=== PATIENT | female | born 2000 | race Caucasian/White ===

== ENCOUNTER 2023-07-14 16:22 | Emergency (ER) | payer OTHER, SELFPAY ==
[2023-07-14 16:27] VITALS: BP 141/94; PULSE 82; RESP 20; O2SAT 99; BMI 19.1
[2023-07-14 17:34] LABS: Bilirubin Urine NEGATIVE (NEGATIVE); Blood Urine TRACE-I (NEGATIVE); Clarity Urine CLEAR (CLEAR); Color Urine YELLOW (YELLOW); Glucose Urine UA NEGATIVE (NEGATIVE); Ketones Urine TRACE mg/dL (NEGATIVE); Leukocyte Esterase Urine NEGATIVE (NEGATIVE); Nitrite Urine POSITIVE (NEGATIVE); Protein Urine TRACE mg/dL (NEG/TRACE); Specific Gravity Urine >=1.030 (1.005-1.025); Urobilinogen Urine 0.2 EU/dL (0.2-1.0)
[2023-07-14 17:35] LABS: Basophils Absolute Auto 0.1 10^3/uL (0.0-0.1); Basophils Percent Auto 0.8 % (0.2-2.0); Eosinophils Absolute Auto 0.1 10^3/uL (0.0-0.7); Hematocrit 38.9 % (36.0-48.0); Hemoglobin 12.2 g/dL (12.0-16.0); Immature Granulocytes Abs Auto 0.04 10^3/uL (0.00-0.03); Immature Granulocytes Pct Auto 0.3 % (0.0-0.5); Lymphocytes Absolute Auto 3.1 10^3/uL (1.2-3.8); Lymphocytes Percent Auto 26.7 % (20.5-60.0); Mean Corpuscular HGB Conc 31.4 g/dL (29.9-35.2); Mean Corpuscular Hemoglobin 23.8 pg (26.7-34.0); Mean Platelet Volume 9.6 fL (9.5-13.5); Monocytes Absolute Auto 0.7 10^3/uL (0.3-0.8); Monocytes Percent Auto 5.8 % (1.7-12.0); Neutrophils Absolute Auto 7.6 10^3/uL (1.4-6.5); Neutrophils Percent Auto 65.4 % (43.0-75.0); Platelet Count 443 10^3/uL (150-450); Red Blood Count 5.12 10^6/uL (4.20-5.40); Red Cell Distribution Width 18.6 % (11.0-15.0); White Blood Count 11.6 10^3/uL (4.0-11.0)
[2023-07-14 17:43] LABS: Bacteria Urine MODERATE #/HPF (NONE SEEN); Calcium Oxalate Crystals Urine RARE; Cast Seen? NONE SEEN #/LPF (NONE SEEN); Crystals Seen? Seen #/HPF (None Seen); Mucus Urine NONE SEEN (NONE SEEN); RBC Urine 0-2 #/HPF (0-2); Squamous Epithelial Cell Urine FEW #/LPF (NONE/RARE); Urine Culture Indicated YES
[2023-07-14] MEDS: KETOROLAC TROMETHAMINE 30 MG/ML VIAL 15 MG IVP (17:50)
--- NOTE | 2023-07-14 17:50 | XR_ITS ---
The [address] [address] Patient Name: CRISTINA LANDAVERDE MRN: [id number] date: 2000 Sex: F Assigned Patient Location: ER Current Patient Location: ED.MAIN Accession/Order Number: [id number] Exam Date: 07/14/2023 17:38 Report Date: 07/14/2023 18:45 At the request of: LASHON WISE Procedure: XR acute abdomen series EXAM TYPE: XR acute abdomen series EXAM DATE AND TIME: 07/14/2023 2:38 PM PDT INDICATION: 23 years old Female with COMPARISON: None. TECHNIQUE: Frontal view of the chest. Supine and upright views of the abdomen. FINDINGS: No pneumothorax, pleural effusion or focal consolidation. Heart size is within normal limits. Normal nonobstructive bowel gas pattern. No subdiaphragmatic free intraperitoneal air. No pathologic calcifications. Visualized osseous structures appear unremarkable. Pelvic surgical clips are noted. XR/XR acute abdomen series IMPRESSION: Nonspecific abdomen. Electronically authenticated by: Ashwin LEAL Date: 07/14/2023 18:45
[2023-07-14] MEDS: ONDANSETRON PF 4 MG/2 ML VIAL IV (17:51)
[2023-07-14] MEDS: 0.9 % SODIUM CHLORIDE 1,000 ML 999 ML IV (17:51)
[2023-07-14] MEDS: DICYCLOMINE HCL 20 MG/2 ML VIAL IM (17:51)
--- NOTE | 2023-07-14 18:01 | ED.GENADUL1 ---
HPI - General Adult General Chief complaint: Abdominal Pain Stated complaint: FLANK PAIN Time Seen by Provider: 07/14/23 16:27 Mode of arrival: walk-in History of Present Illness HPI narrative: Patient is a 23-year-old female who is presenting to the Emergency Room with multiple complaints and concerns. Patient states that she was raised in the [place] area, but currently lives in [place]. Patient has no PCP. Patient states that last week she was at [facility]. It is unclear exactly what happened in the emergency room, patient said she was there because she had multiple symptoms at that time as well, television, dizziness, belly pain, nausea or vomiting. Patient is uncertain what happened because she states that she was being held against her wishes even know she is not suicidal. Patient then states that she had a EEG as an inpatient. Patient initially told the nurses at triage that she had brain surgery but it sounds like patient had a EEG for unknown reason. Patient also has a small area of bruising to her left lower quadrant, patient does not know where that occurred while she was admitted at [facility]. Patient states that she has clamps on her bilateral fallopian tubes, and she is concerned that since she was at a [facility] hospital at [facility], she does not know where the bruise came from, but was wondering if [facility] messed with my clamps and is there a way to verify they are okay. Patient statesFor the past 1.5 weeks, she's had nausea, vomiting, has not been eating or drinking much. Patient says that she does use marijuana, she gets it from dispensary's. Patient has history of cyclic nausea and vomiting. Patient denies any illicit drug use, denies any withdrawal from benzos or opiates, states she does no other illicit drugs. Patient says she does not drink alcohol, she does smoke pack cigarettes a day. Patient takes no other medications, no control. Patient has urinary frequency and some dysuria, no urgency. Patient's been having left flank pain. Patient does have a history kidney stones, patient states that she's had lithotripsy 2 or 3 times in the past with urologist in the [facility]. She currently does not have a urologist in [place]. She has no vaginal bleeding, discharge or orders, she is not worried about an STD. Patient says she will have intermittent chest tightness across her left chest, not currently there. No headache, no neck pain. Patient says that she does not feel right, feels like something's wrong with her. Patient did show me abnormal labs that were recorded at [facility], she wrote the abnormal labs on a piece of no blood paper and asked me to explain to her all the abnormal labs and findings. Patient had a low MCV, free T4 was elevated, her EKG showed early repolarization. Patient had signs of dehydration, metabolic acidosis with a low CO2 level. Patient had some of the results from the EKG that she had done. I went over patient's abnormal lab results, urine results, EKG, EEG results with her. I explained to her there is no indication to perform any imaging, CAT scan to verify that her fallopian tube clamps are intact at this time, I did explain to her that the bruising to her left lower abdomen was most likely from a Lovenox shot since she was admitted to the hospital, or possibly insulin shot if that was given for any reason. We are attempting to get records from [facility]. Patient does not recall getting a shot in her abdomen. Patient says that she was out of it for 24 hours, does not recall having the EEG, states that she woke up during some type of brain procedure and then they put her back to sleep again. Patient's recollection of her admission as [facility] is very scattered and unclear as presented to the nursing staff and myself, Andressa Fong RN and Karen Hatfield RN . All systems are negative except as noted/marked. All systems reviewed and otherwise negative. . Nurses note and vital signs reviewed and patient is not hypoxic. General: The patient appears well and in no apparent distress. Patient is resting comfortably on cart. Patient is not toxic, lethargic, or listless Skin: Warm, dry, no pallor noted. There is no rash noted. No petechiae, purpura. Patient has approximately a quarter size ecchymotic area to left lower quadrant. Patient has no palpable hematoma, no pain to the area. Head: Normocephalic, atraumatic Eye: Normal conjunctiva, no drainage, EOMI. PERRL Ears, Nose, Mouth, and Throat: oral mucosa is moist. Nares patent. Mouth without vesicles. Cardiovascular: Regular Rate and Rhythm, no murmur, gallop, rub Respiratory: Patient is in no distress, no accessory muscle use, lungs are clear to auscultation, no wheezing, rales or rhonchi Back: non-tender, no CVA tenderness bilaterally to percussion. No CT LS midline pain GI: soft, no tenderness to palpation, no masses appreciated. No rebound, guarding, or rigidity noted. No flank pain bilateral, No distention. Patient stated she had surgery through her umbilicus previously, her umbilicus is within normal limits, no tenderness to palpation, no signs of abscess, drainage, or any other acute abnormality. Musculoskeletal: Patient has full range of motion of all of the extremities, no motor, sensory, or focal neurological deficits Neurological: A&O x3, normal speech Psychiatric: Cooperative, Patient is alert and oriented ?3, GCS of 15. Patient is not hallucinating, not psychotic, not suicidal, not homicidal, patient is able to provide clear history and answer questions appropriately to the best of her recollection for myself. This was not evident during initial triage, and patient was not as clear with her thoughts and presentation for Andressa Fong and Jabari Hatfield RN. However, patient has never been suicidal, homicidal, paranoid, psychotic, hallucinating, or any other symptoms or require more testing. Entire history and physical exam, along with history of present illness was done with Andressa Alonso RN at bedside as a witness in the room. Related Data Previous Rx's Medication Instructions Recorded cephalexin 500 mg capsule 500 mg PO Q12H 7 days #14 caps 07/14/23 ondansetron 4 mg disintegrating 4 mg PO Q4H PRN nausea and 07/14/23 tablet vomiting 3 days #6 tabs promethazine 25 mg rectal 25 mg ND Q6H PRN nausea and 07/14/23 suppository vomiting #6 ea Allergies Allergy/AdvReac Type Severity Reaction Status Date / Time pcn AdvReac Intermediate Uncoded 07/14/23 17:55 shellfish AdvReac Intermediate Uncoded 07/14/23 17:55 Exam Constitutional Vital Signs, click to edit/add: Last Vital Signs Pulse 82 07/14/23 16:27 Resp 20 07/14/23 16:27 BP 141/94 H 07/14/23 16:27 Pulse Ox 99 07/14/23 16:27 O2 Del Method Room Air 07/14/23 16:27 Course Vital Signs Vital signs: Vital Signs Pulse Rate 82 07/14/23 16:27 Respiratory Rate 20 07/14/23 16:27 Blood Pressure 141/94 H 07/14/23 16:27 Pulse Oximetry 99 07/14/23 16:27 Oxygen Delivery Method Room Air 07/14/23 16:27 Pulse Rate 82 07/14/23 16:27 Respiratory Rate 20 07/14/23 16:27 Blood Pressure 141/94 H 07/14/23 16:27 Pulse Oximetry 99 07/14/23 16:27 Oxygen Delivery Method Room Air 07/14/23 16:27 Medical Decision Making MDM Narrative Medical decision making narrative: Patient labwork shows no significant findings. Patient's urine shows evidence of urinary tract infection, patient was given 1 g Rocephin. Patient was sent home with 7 days of Keflex. Patient was sent home with Zofran and Phenergan suppositories. Patient was given a PCP list of PCP in the area of [place] as requested. Patient was in [place], she was also recommended to obtain PCP in her hometown of [place] as well. Patient feels better after IV fluids. We did not obtain patient's paperwork or information from [facility] until patient was discharged. This was reviewed after patient was discharged after my Emergency Room shift working, doing charts dictating after my shift. Patient was admitted to the neurology department, the admission diagnosis was initially suicidal ideation, and seizure. The discharge diagnosis was seizure, suicidal ideation, depressive disorder. I did asked patient if she has a history of seizures and she told me no. Patient had presented to [facility] with seizure-like activity, tonic-clonic activity lasting for more than 5 minutes. Patient was admitted for a seizure workup. Patient told physicians that she did have a previous seizure-like episode that lasted for 2 minutes years before this event last week but never sought medical treatment. MRI of the brain was negative. Patient was loaded with Keppra in the Emergency Room. Patient was switched to Vimpat. She is also given a migraine cocktail for headache. Patient initially expressed suicidal ideation that she later denied. Psychiatry was counseled today and evaluated, as recommended by psychiatry that she could be discharged with outpatient follow-up. Patient declined antidepressants when she left. Patient was started on amitriptyline nightly for migraines, also given a prescription for Fioricet to help with migraines. Patient was advised to be compliant with taking Vimpat twice a day. Patient did have an EEG. Patient does not recall any of this, patient told me that she takes no daily medications. Patient told me nothing about history of headaches or migraines. Patient is extremely poor historian. However, patient did have the functional decision-making capacity to be discharged from the Emergency Room today. Patient felt better at discharge. Patient was tolerating a Gatorade but no nausea or vomiting in the Emergency Room. No questions at discharge. See paperwork from [facility] scanned into the chart. Lab Data Lab results reviewed: Yes I reviewed the patient's lab results Labs: Lab Results 07/14/23 07/14/23 07/14/23 Range/Units 16:51 17:20 18:49 WBC 11.6 H (4.0-11.0) 10^3/uL RBC 5.12 (4.20-5.40) 10^6/uL Hgb 12.2 (12.0-16.0) g/dL Hct 38.9 (36.0-48.0) % MCV 76.0 L (81.0-99.0) fL MCH 23.8 L (26.7-34.0) pg MCHC 31.4 (29.9-35.2) g/dL RDW 18.6 H (11.0-15.0) % Plt Count 443 (150-450) 10^3/uL MPV 9.6 (9.5-13.5) fL Neut % (Auto) 65.4 (43.0-75.0) % Lymph % (Auto) 26.7 (20.5-60.0) % [place] % (Auto) 5.8 (1.7-12.0) % Eos % (Auto) 1.0 (0.9-7.0) % Baso % (Auto) 0.8 (0.2-2.0) % Neut # (Auto) 7.6 H (1.4-6.5) 10^3/uL Lymph # (Auto) 3.1 (1.2-3.8) 10^3/uL [place] # (Auto) 0.7 (0.3-0.8) 10^3/uL Eos # (Auto) 0.1 (0.0-0.7) 10^3/uL Baso # (Auto) 0.1 (0.0-0.1) 10^3/uL Abs Immat Gran (auto) 0.04 H (0.00-0.03) 10^3/uL Imm/Tot Granulo (auto) 0.3 (0.0-0.5) % Sodium 141 (136-145) mmol/L Potassium 3.8 (3.5-5.1) mmol/L Chloride 105 (98-107) mmol/L Carbon Dioxide 25.4 (21.0-32.0) mmol/L Anion Gap 14.4 BUN 8.0 (7.0-18.0) mg/dL Creatinine 0.78 (0.55-1.02) mg/dL Est GFR ( Amer) >60 (>=60) Est GFR (Non-Af Amer) >60 (>=60) BUN/Creatinine Ratio 10.3 Glucose 99 (74-106) mg/dL Calcium 9.4 (8.5-10.1) mg/dL Total Bilirubin 0.5 (0.2-1.0) mg/dL AST 11 L (15-37) U/L ALT 19 (14-59) U/L Alkaline Phosphatase 56 (46-116) U/L Troponin I High Sens <4.0 L (4.0-51.3) pg/mL Total Protein 7.6 (6.4-8.2) g/dL Albumin 4.3 (3.4-5.0) g/dL Globulin 3.3 g/dL Albumin/Globulin Ratio 1.3 Lipase 46.0 L (73.0-393.0) U/L Urine Color Yellow (YELLOW) Urine Clarity Clear (CLEAR) Urine pH 6.0 (5.0-9.0) Ur Specific [place] >=1.030 A (1.005-1.025) Urine Protein Trace (NEG/TRACE) mg/dL Urine Glucose (UA) Negative (NEGATIVE) mg/dL Urine Ketones Trace A (NEGATIVE) mg/dL Urine Occult Blood Trace-i (NEGATIVE) Urine Nitrite Positive A (NEGATIVE) Urine Bilirubin Negative (NEGATIVE) Urine Urobilinogen 0.2 (0.2-1.0) EU/dL Ur Leukocyte Esterase Negative (NEGATIVE) Urine RBC 0-2 (0-2) #/HPF Urine WBC 5-10 A (NONE SEEN) #/HPF Ur Squamous Epith Cells Few A (NONE/RARE) #/LPF Urine Crystals Seen A (None Seen) #/HPF Calcium Oxalate Crystal Rare Urine Bacteria Moderate A (NONE SEEN) #/HPF Urine Casts None seen (NONE SEEN) #/LPF Urine Mucus None seen (NONE SEEN) Ur Culture Indicated? Yes Urine HCG, Qual Negative (NEGATIVE) Discharge Plan Discharge Chief Complaint: Abdominal Pain Clinical Impression: UTI (urinary tract infection), Lightheadedness, Marijuana use, Nausea & vomiting Patient Disposition: Home, Self-Care Condition: Good Prescriptions / Home Meds: New promethazine 25 mg suppository 25 mg ND Q6H PRN (Reason: nausea and vomiting) Qty: 6 0RF cephalexin 500 mg capsule 500 mg PO Q12H 7 Days Qty: 14 0RF ondansetron 4 mg tablet,disintegrating 4 mg PO Q4H PRN (Reason: nausea and vomiting) 3 Days Qty: 6 0RF Instructions: Urinary Tract Infection in Women (ED), Acute Nausea and Vomiting (DC), Cannabis Use Disorder (ED), Lightheadedness (ED) Additional Instructions: Take your next dose of antibiotic tomorroww, Friday, July 15. Use oral Zofran or Phenergan suppositories as needed for nausea and vomiting. Education on cyclic nausea and vomiting from marijuana use has been given 2 for educational purposes only, I am not diagnosing new with this today from the Emergency Room. Increase fluids with Gatorade or Powerade or cranberry juice in the next 2-3 days. Progress to soft diet as tolerated. PCP list has been given to, You need to set up primary care physician. Stand Alone Forms: Portal Instructions Referrals: Physician,Non-Staff, MD [Primary Care Provider] - 1 week Discharge Date/Time: 07/14/23 20:27
[2023-07-14] MEDS: CEFTRIAXONE 1,000 MG in 0.9 % SODIUM CHLORIDE 50 ML 100 MG IV (18:18)
[2023-07-14 18:20] LABS: Alanine Aminotransferase 19 U/L (14-59); Albumin Globulin Ratio 1.3; Albumin Level 4.3 g/dL (3.4-5.0); Alkaline Phosphatase 56 U/L (46-116); Anion Gap 14.4; Aspartate Amino Transferase 11 U/L (15-37); BUN Creatinine Ratio 10.3; Bilirubin Total 0.5 mg/dL (0.2-1.0); Calcium 9.4 mg/dL (8.5-10.1); Carbon Dioxide 25.4 mmol/L (21.0-32.0); Chloride 105 mmol/L (98-107); Estimated GFR (African America >60 (>=60); Estimated GFR (Non-African Ame >60 (>=60); Globulin 3.3 g/dL; Glucose 99 mg/dL (74-106); Potassium 3.8 mmol/L (3.5-5.1); Sodium 141 mmol/L (136-145); Total Protein 7.6 g/dL (6.4-8.2); Troponin I High Sensitivity <4.0 pg/mL (4.0-51.3)
[2023-07-14 18:52] LABS: HCG Qualitative Urine* NEGATIVE (NEGATIVE)
[2023-07-14] MEDS: METOCLOPRAMIDE HCL 10 MG/2 ML VIAL IVP (19:09)
== END 2023-07-14 20:27 | disposition home or self-care (01) ==
PROVIDERS: Emergency Provider Emergency Medicine
DX: N39.0 Urinary tract infection, site not specified (principal); R42 Dizziness and giddiness; R11.2 Nausea with vomiting, unspecified; F12.90 Cannabis use, unspecified, uncomplicated; F17.210 Nicotine dependence, cigarettes, uncomplicated; Z87.442 Personal history of urinary calculi
CPT/HCPCS: 36415; 74022; 80053; 81001; 83690; 84484; 84703; 85025; 87086; 87150; 87186; 96372; 96374; 96375; 99284; J0500

== ENCOUNTER 2024-06-29 20:44 | Emergency (ER) | payer SELFPAY ==
[2024-06-29 21:01] VITALS: BP 126/74; PULSE 67; TEMP 36.7; O2SAT 99
--- NOTE | 2024-06-29 21:38 | ED.FEMALEGU1 ---
HPI - Female Genitourinary General Chief complaint: Vaginal Bleeding Stated complaint: Vaginal Bleeding Time Seen by Provider: 06/29/24 21:28 Source: patient Mode of arrival: walk-in History of Present Illness HPI Narrative: presents complaining of vaginal bleeding after intercourse last PM and again today. mild bleeding last PM. Increased bleeding today . No urinary symptoms. States she should not be on her menses and came in to get checked. No light headiness. Admits to some bleeding also about 2 weeks ago Related Data Previous Rx's ?Medication ?Instructions ?Recorded cephalexin 500 mg capsule 500 mg PO Q12H 7 days #14 caps 07/14/23 ondansetron 4 mg disintegrating 4 mg PO Q4H PRN nausea and 07/14/23 tablet vomiting 3 days #6 tabs promethazine 25 mg rectal 25 mg [place] Q6H PRN nausea and 07/14/23 suppository vomiting #6 ea Allergies Allergy/AdvReac Type Severity Reaction Status Date / Time pcn AdvReac Intermediate Hives Uncoded 06/29/24 21:00 shellfish AdvReac Intermediate Hives Uncoded 06/29/24 21:00 Review of Systems ROS Status of ROS 10 or more systems reviewed and unremarkable except as noted in history and below PFSH PFSH Social History Little interest or pleasure in doing things: not at all Feeling down, depressed, or hopeless: not at all Exam Constitutional Vital Signs, click to edit/add: Last Vital Signs Temp 98.0 F 06/29/24 21:01 Pulse 64 06/30/24 00:42 Resp 16 06/30/24 00:42 BP 126/74 06/29/24 21:01 Pulse Ox 100 06/30/24 00:42 O2 Del Method Room Air 06/30/24 00:42 Common normals: no apparent distress, average body habitus, oriented x3, no limitations, healthy appearing, alert and well nourished [facility] Common normals: normocephalic and head/scalp atraumatic Eye Common normals: EOMs intact bilaterally and conjunctivae normal Respiratory Common normals: normal respiratory effort, no retractions, no use of accessory muscles and clear to auscultation bilaterally Cardio Common normals: regular rate, regular rhythm, S1 normal heart sound and S2 normal heart sound GI Other: mild suprapubic tenderness Other: small amount of blood in vaginal vault. No cervical motion tenderness Extremity Common normals: normal to inspection and full ROM Neuro Common normals: oriented x3, CN's II-XII intact bilaterally, moves all extremities and no focal motor deficits Psych Appearance: grossly normal Course Vital Signs Vital signs: Vital Signs Temperature 98.0 F 06/29/24 21:01 Pulse Rate 67 06/29/24 21:01 Respiratory Rate 16 06/29/24 21:01 Blood Pressure 126/74 06/29/24 21:01 Pulse Oximetry 99 06/29/24 21:01 Oxygen Delivery Method Room Air 06/29/24 21:01 Temperature 98.0 F 06/29/24 21:01 Pulse Rate 64 06/30/24 00:42 Respiratory Rate 16 06/30/24 00:42 Blood Pressure 126/74 06/29/24 21:01 Pulse Oximetry 100 06/30/24 00:42 Oxygen Delivery Method Room Air 06/30/24 00:42 MDM - Female Genitourinary MDM Narrative Medical decision making narrative: presents with vaginal bleeding after intercourse. workup unremarkable including CT abd/pelvix . discharged home to follow up with gynecology tomorrow Lab Data Labs: Lab Results 06/29/24 06/29/24 Range/Units 21:52 21:55 WBC 10.0 (4.0-11.0) 10^3/uL RBC 4.53 (4.20-5.40) 10^6/uL Hgb 11.6 L (12.0-16.0) g/dL Hct 36.1 (36.0-48.0) % MCV 79.7 L (81.0-99.0) fL MCH 25.6 L (26.7-34.0) pg MCHC 32.1 (29.9-35.2) g/dL RDW 14.7 (11.0-15.0) % Plt Count 329 (150-450) 10^3/uL MPV 9.3 L (9.5-13.5) fL Neut % (Auto) 50.4 (43.0-75.0) % Lymph % (Auto) 36.3 (20.5-60.0) % [place] % (Auto) 7.8 (1.7-12.0) % Eos % (Auto) 4.4 (0.9-7.0) % Baso % (Auto) 0.9 (0.2-2.0) % Neut # (Auto) 5.1 (1.4-6.5) 10^3/uL Lymph # (Auto) 3.6 (1.2-3.8) 10^3/uL [place] # (Auto) 0.8 (0.3-0.8) 10^3/uL Eos # (Auto) 0.4 (0.0-0.7) 10^3/uL Baso # (Auto) 0.1 (0.0-0.1) 10^3/uL Abs Immat Gran (auto) 0.02 (0.00-0.03) 10^3/uL Imm/Tot Granulo (auto) 0.2 (0.0-0.5) % Sodium 138 (136-145) mmol/L Potassium 3.7 (3.5-5.1) mmol/L Chloride 100 (98-107) mmol/L Carbon Dioxide 30.7 (21.0-32.0) mmol/L Anion Gap 11.0 BUN 14.0 (7.0-18.0) mg/dL Creatinine 1.20 H (0.55-1.02) mg/dL Est GFR ( Amer) >60 (>=60) Est GFR (Non-Af Amer) 55 L (>=60) BUN/Creatinine Ratio 11.7 Glucose 94 (74-106) mg/dL Calcium 8.8 (8.5-10.1) mg/dL Serum HCG, Qual Negative (NEGATIVE) Discharge Plan Discharge Chief Complaint: Vaginal Bleeding Clinical Impression: Vaginal bleeding Patient Disposition: Home, Self-Care Prescriptions / Home Meds: No Action promethazine 25 mg suppository 25 mg [place] Q6H PRN (Reason: nausea and vomiting) Qty: 6 0RF cephalexin 500 mg capsule 500 mg PO Q12H 7 Days Qty: 14 0RF ondansetron 4 mg tablet,disintegrating 4 mg PO Q4H PRN (Reason: nausea and vomiting) 3 Days Qty: 6 0RF Print Language: Singaporean Instructions: Abnormal (Dysfunctional) Uterine Bleeding (ED) Additional Instructions: follow up with Dr Tomas tomorrow Referrals: Physician,Non-Staff, MD [Primary Care Provider] - 1 week Discharge Date/Time: 06/30/24 00:44
--- NOTE | 2024-06-29 21:47 | CT_ITS ---
The [address] [address] Patient Name: CRISTINA LANDAVERDE MRN: [id number] date: 2000 Sex: F Assigned Patient Location: ER Current Patient Location: .[facility] Accession/Order Number: [id number] Exam Date: 06/29/2024 22:32 Report Date: 06/29/2024 22:55 At the request of: JOHANA MILES Procedure: CT abdomen pelvis wo con CT ABDOMEN PELVIS WITHOUT CONTRAST HISTORY: Abdominal pain. Vaginal bleeding. COMPARISON: None. TECHNIQUE: Thin section axial CT images were obtained from the lung bases to the pubis symphysis. This CT exam was performed using one or more of the following dose reduction techniques: Automated exposure control, adjustment of the mA and/or kV according to patient size, or use of iterative reconstruction technique. Thin section coronal and sagittal images were reconstructed from the axial data set. All images were reviewed and interpreted. CONTRAST: None. FINDINGS: Assessment of solid organs is limited without the benefit of IV contrast. LUNG BASES: The lung bases are clear. GE JUNCTION AND STOMACH: Negative. No hiatal hernia. LIVER: Negative. GALLBLADDER AND BILIARY TREE: Normal gallbladder. SPLEEN: Negative. PANCREAS: Negative. ADRENALS: Negative. KIDNEYS AND URETERS: 2 punctate calculi within the midpole the upper pole calyx right kidney measuring 1 to 2 mm. There are several at least 3 nonobstructing calcifications within calyces left kidney, one midpole to lower pole largest 3 mm. No right or left hydronephrosis or retained right or left ureteral calculi. No renal masses or cysts. SMALL BOWEL: Negative. No enteritis or obstruction. LARGE BOWEL: Negative. No colitis. No obvious diverticulosis. No colonic wall thickening. APPENDIX: No active disease with normal appendix. AORTA: The abdominal aorta is normal size. IVC: Negative. LYMPH NODES: There is no lymphadenopathy. BLADDER: Normal bladder. BONES: Remote bilateral L5 pars fractures with grade 1 anterolisthesis of L5 on S1 causing degenerative disc height loss. No acute fracture. COMMENTS: There is a trace of free fluid within the cul-de-sac and right adnexa likely due to menstrual onset and follicular cyst rupture from menses given age. Bilateral tubal ligation clips are noted. Presumed physiologic fluid. No free fluid seen elsewhere. No loculated fluid. No free air. CT/CT abdomen pelvis wo con IMPRESSION: 1. Bilateral nonobstructing intrarenal calculi. No hydronephrosis or acute retained ureteral calculi. 2. Trace physiologic simple free fluid in the pelvic cul-de-sac presumably from menstrual onset. Correlate with menstrual cycle history. 3. Bilateral tubal ligation clips. 4. Normal appendix and bowel loops. 5. Remote bilateral L5 pars fractures with grade 1 anterolisthesis of L5 on S1. Electronically authenticated by: NILESH SANDOVAL Date: 06/29/2024 22:55
[2024-06-29 22:07] LABS: Basophils Absolute Auto 0.1 10^3/uL (0.0-0.1); Basophils Percent Auto 0.9 % (0.2-2.0); Eosinophils Absolute Auto 0.4 10^3/uL (0.0-0.7); Eosinophils Percent Auto 4.4 % (0.9-7.0); Hematocrit 36.1 % (36.0-48.0); Hemoglobin 11.6 g/dL (12.0-16.0); Immature Granulocytes Abs Auto 0.02 10^3/uL (0.00-0.03); Immature Granulocytes Pct Auto 0.2 % (0.0-0.5); Lymphocytes Absolute Auto 3.6 10^3/uL (1.2-3.8); Lymphocytes Percent Auto 36.3 % (20.5-60.0); Mean Corpuscular HGB Conc 32.1 g/dL (29.9-35.2); Mean Corpuscular Hemoglobin 25.6 pg (26.7-34.0); Mean Corpuscular Volume 79.7 fL (81.0-99.0); Mean Platelet Volume 9.3 fL (9.5-13.5); Monocytes Absolute Auto 0.8 10^3/uL (0.3-0.8); Monocytes Percent Auto 7.8 % (1.7-12.0); Neutrophils Absolute Auto 5.1 10^3/uL (1.4-6.5); Neutrophils Percent Auto 50.4 % (43.0-75.0); Platelet Count 329 10^3/uL (150-450); Red Blood Count 4.53 10^6/uL (4.20-5.40); Red Cell Distribution Width 14.7 % (11.0-15.0)
[2024-06-29 22:16] LABS: BUN Creatinine Ratio 11.7; Calcium 8.8 mg/dL (8.5-10.1); Carbon Dioxide 30.7 mmol/L (21.0-32.0); Chloride 100 mmol/L (98-107); Estimated GFR (African America >60 (>=60); Estimated GFR (Non-African Ame 55 (>=60); Glucose 94 mg/dL (74-106); Potassium 3.7 mmol/L (3.5-5.1); Sodium 138 mmol/L (136-145)
[2024-06-29 22:21] LABS: HCG Qualitative NEGATIVE (NEGATIVE); Internal Control Within Normal Limits
[2024-06-29] MEDS: KETOROLAC TROMETHAMINE 60 MG/2 ML VIAL IM (22:55)
[2024-06-30 00:42] VITALS: PULSE 64; O2SAT 100
== END 2024-06-30 00:44 | disposition home or self-care (01) ==
PROVIDERS: Emergency Provider Internal Medicine
DX: N93.0 Postcoital and contact bleeding (principal)
CPT/HCPCS: 36415; 74176; 80048; 84703; 85025; 96372; 99284; J1885